=== PATIENT | male | born 1985 | race Caucasian/White ===

== ENCOUNTER 2019-03-18 21:32 | Emergency (ER) | payer SELFPAY ==
[~2019-03-18] VITALS: Wt 80.5 kg
--- NOTE | 2019-03-18 23:25 | ERD ---
ER Documentation Chief Complaint Chief Complaint LARGE SWOLLEN AREA ON L SIDE NECK X'S 4 DAYS HPI This is a 34-year-old male who presents here in the emergency department with complaints of left sided neck pain and swelling for about 4 days. Denies headache, head injury, loss of consciousness, dizziness, neck stiffness, throat pain, difficulty swallowing, difficulty breathing lying flat, shoulder pain, chest pain, back pain, abdominal pain, nausea, vomiting, constipation, diarrhea, urinary symptoms, loss of bowel and bladder control, trauma, injury, falls, difficulty walking due to pain, numbness or tingling sensation, calf pain, recent travel, recent major surgery in the last 3 weeks, calf pain, recent long travel, recent exposure to any illness, recent antibiotic use in the last 3 months, fever, chills, seizures. Past medical history: Surgical history: Social: Denies smoking, use of alcoholic beverages, use of illegal drugs. ROS All systems reviewed and are negative except as per history of present illness. Medications Home Meds Active Scripts Tramadol HCl (Tramadol HCl) 50 Mg Tablet, 50 MG PO Q4 PRN for SEVERE PAIN LEVEL 7-10, #5 TAB Prov:PASILABAN,KLAR F 03/19/19 Sulfamethoxazole/Trimethoprim* (Bactrim Ds* Tablet) 1 Each Tablet, 1 TAB PO BID for 7 Days, #14 TAB Prov:PASILABAN,KLAR F 03/19/19 Ibuprofen* (Motrin*) 800 Mg Tab, 800 MG PO Q6H PRN for PAIN AND OR ELEVATED TEMP, #30 TAB Prov:PASILABAN,KLAR F 03/19/19 Allergies Allergies: Coded Allergies: No Known Allergy (Unverified , 03/19/19) PMhx/Soc Medical and Surgical Hx: pt denies Medical Hx, pt denies Surgical Hx Hx Alcohol Use: No Hx Substance Use: No Hx Tobacco Use: No Smoking Status: Never smoker Physical Exam Vitals Vital Signs Date Temp Pulse Resp B/P (MAP) Pulse Ox O2 O2 Flow FiO2 Time Delivery Rate 03/19/19 97.9 72 18 134/85 100 Room Air 04:38 (101) 03/18/19 97.9 83 18 159/95 100 22:03 (116) Physical Exam Const: No acute distress Head: Atraumatic Eyes: Normal Conjunctiva ENT: Normal External Ears, Nose and Mouth. Bilateral ears: TMs are not erythematous. No bleeding. No discharge with no hearing loss. No mastoid tenderness. Nose: Midline. There is no frontal or maxillary sinus tenderness palpation. Throat: Uvula is in midline and nondisplaced. Tonsils are +1 bilaterally without redness without exudates. Tolerating secretions. Patent airway. Speaks full and clear sentences. Neck: Full range of motion. No meningismus. No nuchal rigidity. No signs of meningeal irritation. Swelling to the posterior left neck measuring approximately 4 cm in diameter. Swelling is approximately 3 cm away from the mastoid area. Resp: Clear to auscultation bilaterally Cardio: Regular rate and rhythm, no murmurs Abd: Soft, non tender, non distended. Normal bowel sounds Skin: No petechiae or rashes. Please see neck physical exam. Back: No midline or flank tenderness Ext: No cyanosis, or edema Neur: Awake and alert. No neurological deficits. Psych: Normal Mood and Affect Result Diagram: 03/18/19 2337 03/18/19 2337 Results 24 hrs Laboratory Tests Test 03/18/19 23:37 White Blood Count 11.0 10^3/ul Red Blood Count 4.74 10^6/ul Hemoglobin 14.2 g/dl Hematocrit 42.0 % Mean Corpuscular Volume 88.6 fl Mean Corpuscular Hemoglobin 30.0 pg Mean Corpuscular Hemoglobin Concent 33.8 g/dl Red Cell Distribution Width 11.9 % Platelet Count 278 10^3/UL Mean Platelet Volume 9.4 fl Immature Granulocytes % 0.200 % Neutrophils % 76.7 % Lymphocytes % 14.5 % Monocytes % 7.4 % Eosinophils % 1.0 % Basophils % 0.2 % Nucleated Red Blood Cells % 0.0 /100WBC Immature Granulocytes # 0.020 10^3/ul Neutrophils # 8.4 10^3/ul Lymphocytes # 1.6 10^3/ul Monocytes # 0.8 10^3/ul Eosinophils # 0.1 10^3/ul Basophils # 0.0 10^3/ul Nucleated Red Blood Cells # 0.0 10^3/ul Sodium Level 142 mmol/L Potassium Level 4.2 mmol/L Chloride Level 103 mmol/L Carbon Dioxide Level 29 mmol/L Anion Gap 10 Blood Urea Nitrogen 18 mg/dl Creatinine 0.73 mg/dl Est Glomerular Filtrat Rate mL/min > 60 mL/min Glucose Level 112 mg/dl Calcium Level 9.9 mg/dl Total Bilirubin 0.4 mg/dl Direct Bilirubin 0.00 mg/dl Indirect Bilirubin 0.4 mg/dl Aspartate Amino Transf (AST/SGOT) 27 IU/L Alanine Aminotransferase (ALT/SGPT) 26 IU/L Alkaline Phosphatase 70 IU/L Total Protein 8.2 g/dl Albumin 4.6 g/dl Globulin 3.60 g/dl Albumin/Globulin Ratio 1.27 Current Medications Medications Dose Sig/Devendra Start Time Status Last (Trade) Ordered Route PRN Stop Time Admin Dose Reason Admin Morphine 4 mg ONCE STAT 03/18/19 DC 03/18/19 Sulfate IV 23:37 23:53 (morphine) 03/18/19 23:39 Ondansetron 4 mg ONCE STAT 03/18/19 DC 03/18/19 HCl (Zofran IV 23:37 23:53 Inj) 03/18/19 23:39 125 mg ONCE ONCE 03/19/19 DC 03/18/19 Methylprednis IV 00:00 23:53 olone Sodium 03/19/19 00:01 Succinate (Solu-Medrol) Sodium 1,000 ml @ Q1H ONCE 03/19/19 DC 03/18/19 Chloride 1,000 mls/hr IV 00:00 23:53 03/19/19 00:59 Sodium 100 ml @ ud STK-MED 03/19/19 DC Chloride ONCE .ROUTE 00:41 03/19/19 00:42 Iohexol 150 ml STK-MED 03/19/19 DC (Omnipaque ONCE .ROUTE 00:41 300mg/ ml) 03/19/19 00:42 Lidocaine 20 ml ONCE ONCE 03/19/19 DC (Xylocaine SC 03:30 1% (Mdv) 20 03/19/19 03:31 ml) 1 tab ONCE ONCE 03/19/19 DC 03/19/19 Trimethoprim/ PO 04:30 04:30 03/19/19 04:31 Sulfamethoxaz ole (Bactrim (Ds)) Procedures/MDM This case was discussed with my supervising physician, Dr. Jonas Mccray who suggested for me to order a CT of the neck soft tissue with IV contrast. Diagnostic tests: Blood works: Reviewed. CT of the neck soft tissue with IV contrast:1. Stranding and edema within the subcutaneous soft tissues below the left occiput. Focal area of diminished density within this region measuring 1.5 cm diameter is consistent with inflammatory phlegmon or developing abscess. 2. Bilateral maxillary and ethmoid sinusitis. Treatment: Saline lock. Normal saline IV bolus. Zofran IV. Morphine IV. Solu-Medrol IV. CT of the neck soft tissue with IV contrast result was discussed with my supervising physician, Dr. Alexandro Andrade who suggested for me to do an incision and drainage. Procedure: Incision and drainage of abscess to left neck. Patient verbally consented for me to incision and drainage. Sterile technique was observed. Betadine prep. Lidocaine 1% 3 cc subcu. Scalpel used to incised the abscess. Drained minimal (approximately 1.5 cc) of mucopurulent drainage. Packed with iodoform. Bacitracin and dressing was applied by EMT. Re-evaluation: No active bleeding. No nuchal rigidity. No signs of meningeal i rritation. Differential diagnosis I have low suspicion for sepsis, severe serious bacterial infection, mastoiditis, peritonsillar abscess, meningitis. Final diagnosis: Incision and drainage of abscess. Prescription: Bactrim. Motrin. Tramadol. Follow-up with PCP in the next 24-48 hours. Come back in 2 days for a wound check and removal of packing and or repacking. Come back here in the emergency department for any new symptoms or any worsening symptoms. All questions and concerns were answered. Patient and family members verbalized understanding and agreed with plan of care. Hemodynamically stable on discharge. Departure Diagnosis: Primary Impression: Abscess Condition: Stable Additional Instructions: Follow-up with PCP in the next 24-48 hours. Come back in 2 days for a wound check and removal of packing and or repacking. Come back here in the emergency department for any new symptoms or any worsening symptoms. VELIA CIFUENTES March 18, 2019 23:25
[2019-03-18] MEDS ORDERED: morphine 4 MG/ML VIAL IV STA (23:37)
[2019-03-18] MEDS ORDERED: ONDANSETRON 4 MG INJ IV STA (23:37)
[2019-03-19] MEDS ORDERED: METHYLPREDNISOLONE 125 MG INJ IV ONE
[2019-03-19] MEDS ORDERED: SOD CHLORIDE 0.9% 1,000 ML IV ONE
[2019-03-19] MEDS ORDERED: SOD CHLORIDE 0.9% 100 ML ONE (00:41)
[2019-03-19] MEDS ORDERED: IOHEXOL 300MG/ML 150 ML BTL ONE (00:41)
[2019-03-19] MEDS ORDERED: LIDOCAINE 1% (MDV) 20 ML INJ SC ONE (03:30)
[2019-03-19] MEDS ORDERED: IBUP800T48 PO (04:24)
[2019-03-19] MEDS ORDERED: TRAM50TA2 PO (04:24)
[2019-03-19] MEDS ORDERED: SULF1TAB31 PO (04:24)
[2019-03-19] MEDS ORDERED: TRIMETHOPRIM/SULFAMETHOX (DS) TAB PO ONE (04:30)
[2019-03-19 04:38] VITALS: BP 134/85; PULSE 72; RESP 18
== END 2019-03-19 04:44 | disposition home or self-care (01) ==
LOC: FTE 21:32
DX: L02.11 Cutaneous abscess of neck (principal)
CPT/HCPCS: 10060; 70491; 80053; 85025; 87070; J2270; J2405; J2930; J7030; Q9967; 96361; 96374; 96375